=== PATIENT | female | born 1980 | race Two or more races ===

== ENCOUNTER 2017-11-09 09:51 | Emergency (ER) | payer MEDICAID | END 2017-11-09 11:10 | disposition home or self-care (01) | LOC: FTE 09:51 | DX: O99.513 Diseases of the respiratory system complicating pregnancy, third trimester (principal); J06.9 Acute upper respiratory infection, unspecified; Z3A.34 34 weeks gestation of pregnancy | CPT/HCPCS: 99283; Z7502 ==

== ENCOUNTER 2017-12-12 11:12 | Inpatient (IN) | payer MEDICAID ==
[2017-12-12] MEDS ORDERED: CLINDAMYCIN 900 MG/D5W (PMX) 50 ML IV (12:00)
[2017-12-12] MEDS ORDERED: METHYLERGONOVINE 0.2 MG INJ IM ×2 (12:00→19:00)
[2017-12-12] MEDS ORDERED: MISOPROSTOL 200 MCG TAB PR ×2 (12:00→19:00)
[2017-12-12] MEDS ORDERED: OXYTOCIN 30 UNITS/LR 500 ML IV ×5 (12:00→19:00)
[2017-12-12] MEDS ORDERED: CARBOPROST 250 MCG INJ IM ×2 (12:00→19:00)
[2017-12-12] MEDS: LACTATED RINGER'S 1,000 ML IV ×3 (12:13→18:41)
[2017-12-12 12:14] LABS: ADD MAN DIFF? NO
[2017-12-12 12:21] LABS: BASOPHILS % 0.5 % (0.0-2.0); EOSINOPHILS # 0.1 10^3/ul (0.0-0.5); EOSINOPHILS % 0.9 % (0.0-7.0); HEMOGLOBIN 12.1 g/dl (12.0-16.0); LYMPHOCYTES # 2.1 10^3/ul (0.8-2.9); LYMPHOCYTES % 25.7 % (15.0-51.0); MEAN CORPUSCULAR HEMOGLOBIN 28.9 pg (29.0-33.0); MEAN CORPUSCULAR HGB CONC 34.6 g/dl (32.0-37.0); MEAN CORPUSCULAR VOLUME 83.7 fl (82.0-101.0); MEAN PLATELET VOLUME 11.4 fl (7.4-10.4); MONOCYTE # 0.3 10^3/ul (0.3-0.9); MONOCYTES % 4.2 % (0.0-11.0); NEUTROPHIL # 5.4 10^3/ul (1.6-7.5); PLATELET COUNT 259 10^3/UL (140-415); RED BLOOD COUNT 4.18 10^6/ul (4.20-5.40); RED CELL DISTRIBUTION WIDTH 15.4 % (11.5-14.5)
[2017-12-12 12:43] LABS: INR 0.96; PROTIME 12.9 Sec (11.9-14.9)
[2017-12-12 12:44] LABS: PARTIAL THROMBOPLASTIN TIME 28.4 Sec (25.0-35.0)
[2017-12-12 13:36] LABS: HEPATITIS B SURFACE ANTIGEN NEGATIVE (NEGATIVE)
[2017-12-12] MEDS ORDERED: CITRIC ACID/SODIUM CITRATE 15 ML CUP (14:06)
[2017-12-12] MEDS: CITRIC ACID/SODIUM CITRATE 15 ML CUP PO (14:12)
[2017-12-12] MEDS ORDERED: BUPIVACAINE 0.75%/DEXT (SPINAL) 2 ML INJ (14:30)
[2017-12-12] MEDS ORDERED: ONDANSETRON 4 MG INJ (14:30)
[2017-12-12] MEDS ORDERED: METOCLOPRAMIDE 10 MG INJ (14:30)
[2017-12-12] MEDS: GENTAMICIN 80 MG/NS (PMX) 50 ML IVPB ×2 (14:30→20:15)
[2017-12-12] MEDS ORDERED: KETOROLAC 30 MG INJ (14:30)
[2017-12-12] MEDS ORDERED: morphine SULFATE/PF (10 MG/10 ML) INJ (14:31)
[2017-12-12] MEDS ORDERED: ONDANSETRON 4 MG INJ IV ×2 (15:00→19:30)
[2017-12-12] MEDS ORDERED: morphine (1 MG/ML) 10ML SYRINGE IV ×2 (15:00)
[2017-12-12] MEDS ORDERED: DIPHENHYDRAMINE 50 MG INJ IV ×2 (15:00→19:30)
[2017-12-12] MEDS ORDERED: FENTAnyl 50 MCG/ML VIAL (15:08)
[2017-12-12] MEDS ORDERED: PROPOFOL 20 ML (15:11)
[2017-12-12] MEDS: morphine (1 MG/ML) 10ML SYRINGE IV (16:49)
[2017-12-12] MEDS: OXYTOCIN 30 UNITS/LR 500 ML IV (18:33)
[2017-12-12] MEDS ORDERED: HYDROCODONE/APAP (5/325) TAB PO (19:00)
[2017-12-12] MEDS ORDERED: NA PHOSPHATE/BIPHOS 133 ML ENEMA PR (19:00)
[2017-12-12] MEDS ORDERED: morphine 2 MG INJ IV ×3 (19:30)
[2017-12-12] MEDS ORDERED: NALOXONE (0.4 MG/ML) INJ IV (19:30)
[2017-12-12] MEDS: SENNA/DOCUSATE NA (8.6MG/50MG) TAB PO (21:00)
[2017-12-12 21:42] LABS: RAPID PLASMA REAGIN NONREACTIVE (NR)
[2017-12-12] MEDS: CLINDAMYCIN 900 MG/D5W (PMX) 50 ML IVPB (22:17)
[2017-12-12] MEDS: KETOROLAC 30 MG INJ IV (22:25)
[2017-12-13] MEDS: LACTATED RINGER'S 1,000 ML IV ×3 (00:34→17:16)
[2017-12-13] MEDS: KETOROLAC 30 MG INJ IV ×2 (04:03→12:33)
[2017-12-13] MEDS: GENTAMICIN 80 MG/NS (PMX) 50 ML IVPB ×2 (04:03→12:30)
[2017-12-13] MEDS: CLINDAMYCIN 900 MG/D5W (PMX) 50 ML IVPB (05:59)
[2017-12-13] MEDS: SENNA/DOCUSATE NA (8.6MG/50MG) TAB PO ×2 (09:12→20:36)
[2017-12-13] MEDS: BISACODYL 10 MG SUPP PR (09:30)
[2017-12-13 09:49] LABS: ADD MAN DIFF? NO
[2017-12-13 09:57] LABS: BASOPHILS % 0.5 % (0.0-2.0); EOSINOPHILS % 0.3 % (0.0-7.0); HEMATOCRIT 28.1 % (37.0-47.0); HEMOGLOBIN 9.6 g/dl (12.0-16.0); LYMPHOCYTES # 1.4 10^3/ul (0.8-2.9); LYMPHOCYTES % 15.9 % (15.0-51.0); MEAN CORPUSCULAR HEMOGLOBIN 28.5 pg (29.0-33.0); MEAN CORPUSCULAR HGB CONC 34.2 g/dl (32.0-37.0); MEAN CORPUSCULAR VOLUME 83.4 fl (82.0-101.0); MEAN PLATELET VOLUME 11.6 fl (7.4-10.4); MONOCYTE # 0.4 10^3/ul (0.3-0.9); MONOCYTES % 4.6 % (0.0-11.0); NEUTROPHIL # 6.8 10^3/ul (1.6-7.5); NEUTROPHILS % 78.4 % (39.0-77.0); PLATELET COUNT 206 10^3/UL (140-415); RED BLOOD COUNT 3.37 10^6/ul (4.20-5.40); RED CELL DISTRIBUTION WIDTH 15.5 % (11.5-14.5)
[2017-12-13 09:57] LABS: WHITE BLOOD COUNT 8.7 10^3/ul (4.8-10.8)
[2017-12-13] MEDS: OXYCODONE/ACETAMINOPHEN (5/325) TAB PO (18:10)
[2017-12-13] MEDS: CLINDAMYCIN 300 MG CAP PO ×2 (18:11→23:33)
[2017-12-13] MEDS: IBUPROFEN 800 MG TAB PO (21:29)
[2017-12-14] MEDS: LACTATED RINGER'S 1,000 ML IV (02:41)
[2017-12-14] MEDS: IBUPROFEN 800 MG TAB PO ×3 (05:52→22:18)
[2017-12-14] MEDS: CLINDAMYCIN 300 MG CAP PO ×3 (05:52→17:54)
[2017-12-14] MEDS: SENNA/DOCUSATE NA (8.6MG/50MG) TAB PO ×2 (09:33→21:25)
[2017-12-14] MEDS: LANOLIN 7 GM TUBE TOP (09:38)
[2017-12-14] MEDS: OXYCODONE/ACETAMINOPHEN (5/325) TAB PO (17:59)
[2017-12-15] MEDS: IBUPROFEN 800 MG TAB PO ×2 (05:30→14:08)
[2017-12-15] MEDS: CLINDAMYCIN 300 MG CAP PO ×3 (05:30→12:46)
[2017-12-15] MEDS: SENNA/DOCUSATE NA (8.6MG/50MG) TAB PO (09:11)
[2017-12-15] MEDS: DIPHTH/TET/ACEL PERTUSS (ADULT) 0.5 ML VIAL IM* (09:12)
[2017-12-15] MEDS: OXYCODONE/ACETAMINOPHEN (5/325) TAB PO (09:12)
[2017-12-15] MEDS: LACTATED RINGER'S 1,000 ML IV ×2 (12:47→14:07)
== END 2017-12-15 17:45 | disposition home or self-care (01) | DRG 766 ==
LOC: L-D 11:12 → PP1 18:25
PROVIDERS: Obstetrics & Gynecology
PROC: 10D00Z1 Extraction of Products of Conception, Low, Open Approach (ICD-10-PCS; principal; 2017-12-12 14:00)
PROC: 0UL70ZZ Occlusion of Bilateral Fallopian Tubes, Open Approach (ICD-10-PCS; 2017-12-12 14:00)
DX: O34.211 Maternal care for low transverse scar from previous cesarean delivery (principal); Z30.2 Encounter for sterilization; Z37.0 Single live birth; Z3A.39 39 weeks gestation of pregnancy
CPT/HCPCS: 85025; 85610; 85730; 86592; 86850; 86900; 86901; 87340; 88302; 94760; 99464

== ENCOUNTER 2019-03-24 22:49 | Emergency (ER) | payer OTHER, MEDICAID ==
[2019-03-24] MEDS: IBUPROFEN 800 MG TAB PO (23:17)
[2019-03-24] MEDS: GUAIFENESIN 20 MG/ML 5ML CUP PO (23:17)
== END 2019-03-24 23:50 | disposition home or self-care (01) ==
LOC: FTE 22:49
DX: J40 Bronchitis, not specified as acute or chronic (principal)
CPT/HCPCS: 99283; Z7502